=== PATIENT | male | born 1985 | race Two or more races ===

== ENCOUNTER 2024-06-26 08:53 | Emergency (ER) | payer OTHER, SELFPAY ==
[2024-06-26 08:59] VITALS: BMI 24.3
[2024-06-26 09:26] VITALS: BP 140/82; PULSE 60; RESP 19; TEMP 36.9; O2SAT 96
--- NOTE | 2024-06-26 09:27 | PD.EDADULT ---
ED General RME/HPI General Chief complaint: Extremity Injury, Upper Stated complaint: CLEARANCE Time Seen by Provider: 06/26/24 09:26 Arrival date/time: 06/26/24 08:53 RME / HPI RME / HPI narrative: Patient comes from [facility] by officer and chains and states he is got right shoulder pain since he bumped it up against the bunk bed and thinks it is dislocated. He evidently had this dislocated once in the past. He has no other complaints or problems he does states he has some mental disorders. Related Data Previous Rx's ?Medication ?Instructions ?Recorded ibuprofen 800 mg tablet 800 mg PO Q8H PRN pain #30 tabs 05/10/24 Allergies Allergy/AdvReac Type Severity Reaction Status Date / Time No Known Allergies Allergy Verified 05/10/24 11:04 Review of Systems Review of Systems Narrative Review of Systems: Constitutional: DENIES; Fevers Eyes: DENIES; Loss of vision Head/Ear/Nose: DENIES; Loss of hearing Throat: DENIES; Dysphagia Cardiovascular: DENIES; Chest pain, dyspnea or syncope Respiratory: DENIES; Shortness of breath Gastrointestinal: DENIES; Rectal bleeding or melena. Genitourinary: DENIES; Dysuria (painful or difficult urination) Musculoskeletal: SEE HPI +rigth shoulder pain. Skin: DENIES; Rash Neurological: DENIES; Loss of function or movement Allergic/Immunologic: DENIES; Urticaria (hives) Past Medical History Past Medical History CARDIAC: Negative Congestive Heart Failure RESPIRATORY: Negative Chronic Obstructive Pulmonary Disease (COPD) GENITOURINARY: Negative Renal Disease ENDOCRINE: Negative Diabetes Mellitus Type 1 or Diabetes Mellitus Type 2 Family History FAMILY HISTORY: Negative Family Psychiatric Problems, Family Respiratory Disorders, Family Cardiac Disorders or Family Gastrointestinal Problems Social History SMOKING STATUS: Current every day smoker ED Exam Narrative Physical exam: Physical Exam: General: The vital signs were reviewed. The patient is non-toxic, in no apparent distress and appears healthy with a patent airway, no respiratory distress and has no apparent circulatory problems. Head & Scalp: Normocephalic, atraumatic. Face: Appears normal and is without lesions, deformity. Ears: Left external pinna appears normal. Right external pinna appears normal. Eyes: The sclera is anicteric. No obvious photophobia. The Left and Right Orbit/Lid/Conjunctiva appears normal without swelling, discoloration or injection. Nose: The nose is without deformity, discharge or tenderness; Throat: Appears normal. The mucous membranes are pink and moist without exudates, redness or mass seen. The tongue appears normal. Neck: The neck is supple and no apparent mass or adenopathy. Chest: The chest wall is normal in size and symmetry and has no chest wall tenderness or crepitus. The patient displays normal ventilator effort without retractions, accessory muscle use and has adequate air movement bilaterally with no wheezes and no rales. Cardiovascular: Regular rate and rhythm; No murmurs, rubs, or gallops; Gastrointestinal: The abdomen appears normal. No obvious hernias or mass. The abdomen is soft and benign, non-distended, with no pain, no guarding and no rebound tenderness. Bowel sounds are present and normal sounding. No CVA tenderness. Genitourinary: Back/Spine: Nontender normal inspection Extremities/Musculoskeletal/lymphatic: The right shoulder appears to have some elevation of the clavicle above the glenoid area with high riding clavicle with pain with minimal movement. Neurovascularly is intact. The left shoulder and arm are within normal limits. The bilateral upper and lower extremities are warm. There is no evidence of arterial insufficiency. There is no evidence of venous insufficiency/edema. The patient spontaneously moves left upper and lower extremities with no pain and no limitation of movement. Right arm has limited mobility due to the right shoulder probable dislocation. There is no apparent, injury or trauma. Skin: The skin is warm, dry and intact. No rashes. No petechia. No purpura. No abnormal bruising. The color is appropriate with no cyanosis. Mental status/Psychiatric: Mental status is appropriate for age. The patient has no apparent delusions, visual hallucinations, no apparent audible hallucinations. The patient has no apparent suicidal thoughts/ideation and no apparent homicidal thoughts/ideation. Neurological: The patient is awake, alert, interactive, cordial, cooperative and is oriented to name and situation. The patient follows commands and answers historical question with no impairment. There is no visual disturbance apparent. The pupils are equal and reactive bilaterally with normal eye movements and no diplopia The bilateral upper and lower extremities have normal strength, normal range of motion and normal functioning. The gait, station and balance appear to be baseline with no acute change Course Quality Measures none Orders Category Date Time Status sling [Splint / Immobilizer] STAT Care 12/19/24 12:35 Completed XR shoulder RT min 2V Stat Exams 06/26/24 09:28 Completed Vital Signs Vital signs: Vital Signs Temperature 98.5 F 06/26/24 09:26 Pulse Rate 60 06/26/24 09:26 Respiratory Rate 19 06/26/24 09:26 Blood Pressure 140/82 H 06/26/24 09:26 Pulse Oximetry (%) 96 06/26/24 09:26 Oxygen Delivery Method Room Air 06/26/24 09:26 Pulse ox is 96% on room air which is adequate. [facility] Patient data External records reviewed:: [facility] previous records (I reviewed ED visit on 05/10/2024) Clinical information provided by:: patient and law enforcement Social determinants that could affect healthcare access:: housing (Currently incarcerated ) Patient has the following chronic illnesses:: Schizophrenia How is presenting disease/condition affected by chronic disease/condition?: no chronic disease Evaluation data The following diagnostics were reviewed and interpreted by me:: radiology exam(s) Lab and/or radiology exams considered but not ordered:: None Interpretation Summary: Ordering Physician: Milton Hi MD Date of Service: 06/26/24 Procedure(s): XR shoulder RT min 2V Accession Number(s): [id number] cc: Milton Hi MD; Shashank Smith MD; NO PRIMARY/FAMILY,PHYSICIAN~ Examination: Shoulder,right, 3 views Technique: Shoulder AP internal rotation, AP external rotation, Y view shoulder, 3 views Exam date and time :June 26, 2024 0934 hours INDICATIONS: Shoulder pain today FINDINGS: Worsening AC joint separation compared with May 10, 2024 No shoulder fracture or shoulder dislocation IMPRESSION: Worsening AC joint separation compared with May 10, 2024 Dictated By: Shashank Smith MD Signed By: <Electronically signed by Shashank Smith MD in OV> 06/26/24 1056 Medications Medications considered but not ordered:: None Medication administrations:: None Consultations Consultation(s) initiated? (list below): Yes Consultation #1 (Physician, Specialty, Details): I spoke with ortho Dr. Eagle. Discussed patients PMHx, HPI, ED course, exam findings, and radiology results. He advised patient follow up with PCP for referral to see shoulder specialist. Time: 10:30 Diagnosis Differential Diagnosis ED Complaint MDM: Shoulder dislocation, shoulder contusion, AC joint separation Most likely diagnosis given after review of the tests above:: AC separation, type 3 Incarceration Contusion of right shoulder Admission Indicated Admission indicated?: not indicated Explain why admission is indicated or not indicated:: Admission criteria not met Admission Request Was there a request for admission?: No Disposition Plan Disposition Plan: Discharge Discharge Attestation Discharge Attestation: The patient and all family members were given an opportunity to ask questions and understood the discharge instructions. Discharge instructions specifically effects, indications for sooner follow up or return to the emergency department, and the expected course of current diagnosis. Patient condition: Stable Medical Decision Making MDM Narrative MDM Narrative: Patient evidently hit his shoulder against the chromium and the clavicular The shoulder is not dislocated that was previously thought out. Patient will be put in a sling. Dr. Andino orthopedic surgeon was called and he stated this patient needs referred to a shoulder surgeon as he does not do this type of surgery in [place] the patient need to be admitted today for this. This information was communicated to the officer. A sling was placed he is neurovascularly intact. Does not appear to be any other injury at this time. Differential Diagnosis Differential Diagnosis: Shoulder dislocation, shoulder contusion, AC joint separation Discharge Plan Plan Patient Disposition: [facility]/Court/Law Prescriptions/Referrals Prescriptions/Med Rec: No Action ibuprofen 800 mg tablet 800 mg PO Q8H PRN (Reason: pain) Qty: 30 0RF Referrals: No Primary/Family,Physician [Primary Care Provider] - In 1 week Problem List Clinical Impression: AC separation, type 3, Incarceration, Contusion of right shoulder Patient/Caregiver Discharge Instructions Additional Instructions: He had a grade 3 shoulder separation which is worse than the x-ray in May of this year. Important to protect that arm do not run or bumping into his structures as you described. You need a referral to a shoulder surgeon as our orthopedic surgeon Dr. Gerber does not do grade 3 AC separation is The alf can contact his office to get referral or get names of possible orthopedic surgeon to do shoulder surgery or the alf doctor can refer directly at this time just Tylenol or ibuprofen for pain. Also there is evidently issues of mental health looming here and possibly some reevaluation from the mental health team to see why he is running his shoulder into the bunk bed. Print Language: Sinhala
== END 2024-06-26 13:01 ==
PROVIDERS: Emergency Provider Emergency Medicine
DX: S43.101A Unspecified dislocation of right acromioclavicular joint, initial encounter (principal); W22.8XXA Striking against or struck by other objects, initial encounter; Y92.143 Cell of prison as the place of occurrence of the external cause
CPT/HCPCS: 73030; 99283; A4565

== ENCOUNTER 2024-09-07 18:54 | Emergency (ER) | payer MEDICAID, SELFPAY ==
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
[2024-09-07 19:05] VITALS: PULSE 102; RESP 18; O2SAT 98; BMI 25.1
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
[2024-09-07 19:13] VITALS: BP 159/94; PULSE 96; RESP 20; TEMP 36.6; O2SAT 99
[2024-09-07] MEDS: ACETAMINOPHEN 500 MG TABLET 1000 MG PO (19:14)
[2024-09-07 20:20] LABS: Basophils % (Auto) 0 % (0-2.5); Eosinophils % (Auto) 0 % (0-10); Hematocrit 33.5 % (41.0-53.0); Hemoglobin 11.3 g/dL (13.5-16.0); Immature Granulocytes % (Auto) 0 % (0-0); Immature Granulocytes Auto 0.05 Thou/mm3 (0.00-0.00); Lymphocytes # (Auto) 1.2 Thou/mm3 (1.0-4.8); Lymphocytes % (Auto) 9 % (10-50); Mean Corpuscular HGB Conc 33.7 g/dl (31.0-37.0); Mean Corpuscular Hemoglobin 31.9 pg (25.0-35.0); Mean Corpuscular Volume 95 fL (80-100); Monocytes % (Auto) 8 % (0-12); Neutrophils # (Auto) 10.9 Thou/mm3 (1.8-7.7); Neutrophils % (Auto) 83 % (37-80); Nucleated Red Blood Cell % 0 /100 WBC (0); Platelet Count 196 Thou/mm3 (140-440); RDW Standard Deviation 40.1 fL (35.1-43.9); Red Blood Count 3.54 Miln/mm3 (4.50-5.90); White Blood Count 13.1 Thou/mm3 (3.8-10.6)
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
== END 2024-09-07 20:50 | disposition home or self-care (01) ==
PROVIDERS: Emergency Provider Emergency Medicine
DX: S01.01XA Laceration without foreign body of scalp, initial encounter (principal); V19.3XXA Pedal cyclist (driver) (passenger) injured in unspecified nontraffic accident, initial encounter; Y93.55 Activity, bike riding
CPT/HCPCS: 36415; 70450; 72125; 85025; 99284; A9270